=== PATIENT | female | born 1975 | race Caucasian/White ===

== ENCOUNTER 2023-12-06 14:25 | Emergency (ER) | payer OTHER, SELFPAY ==
[2023-12-06] VITALS (7 sets, daily range): BP systolic 97–136; BP diastolic 60–81; BMI 32.1
--- NOTE | 2023-12-06 14:57 | EDRN ---
this RN attempted to place a PIV and was unsuccessful, this RN called IV team
--- NOTE | 2023-12-06 15:34 | EDRN ---
IV team currently at the pts bedside attempting to place a PIV and draw labs
[2023-12-06 16:18] LABS: Hematocrit 34.3 % (37.0-47.0); Hemoglobin 12.1 g/dL (12.0-16.0); Mean Corp Hgb Conc. 35.3 g/dL (33.0-37.0); Mean Corpuscular Hgb 29.7 pg (27.0-31.0); Mean Corpuscular Volume 84.1 fL (81.0-99.0); Mean Platelet Volume 10.7 fL (7.4-10.4); Platelet Count 304 10^3/uL (130-400); Red Blood Cell Count 4.08 10^6/uL (4.20-5.40); Red Cell Dist. Width 12.6 % (11.5-14.5); White Blood Cell Count 5.5 10^3/uL (4.8-10.8)
[2023-12-06 16:35] LABS: % Basophils 0.9 % (0-2); % Eosinophils 2.9 % (0-6); % Immature Granulocytes 0.2 % (0-0.5); % Lymphocytes 40.4 % (20.5-51.1); % Monocytes 8.7 % (1.7-9.3); % Neutrophils 46.9 % (42.2-75.2); Absolute Basophils 0.1 10^3/uL (0-0.2); Absolute Eosinophils 0.2 10^3/uL (0-0.7); Absolute Lymphocytes 2.2 10^3/uL (1.2-3.4); Absolute Monocytes 0.5 10^3/uL (0.1-0.6); Absolute Neutrophils 2.6 10^3/uL (1.4-6.5); Nucleated Red Blood Cells % 0 %
[2023-12-06 17:33] LABS: ALT (SGPT) 13 U/L (0-35); AST (SGOT) 17 U/L (14-36); Albumin 3.6 g/dl (3.5-5.0); Alkaline Phosphatase 51 U/L (38-126); Blood Urea Nitrogen 14 mg/dl (7-17); Calcium 8.6 mg/dl (8.4-10.2); Carbon Dioxide 20 mmol/L (22-30); Chloride 111 mmol/L (98-107); Estimated Creatinine Clearance 98 ml/min; Glucose 83 mg/dl (70-99); Potassium 3.4 mmol/L (3.5-5.1); Sodium 143 mmol/L (135-145); Total Bilirubin 0.4 mg/dl (0.2-1.3); Total Protein 5.8 g/dl (6.3-8.2); eGFR > 60.00
[2023-12-06 17:45] LABS: Troponin I < 0.012 ng/ml
--- NOTE | 2023-12-06 19:14 | ED.GENMED ---
History of Present Illness
General
Chief Complaint: Seizure
Time Seen by Provider: 12/06/23 14:41
History of Present Illness
History of Present Illness:
48-year-old female presents emergency department after 3 episodes of shaking and glazed over eyes. She was awake, the lasted about 2 minutes. History of seizures.
Past History
Past History
ED Past Medical History: CVA, Hypothyroidism, Psychiatric and Other (PE, migraine headaches)
ED Past Surgical History: Other
Social History
Tobacco: Smoker
Alcohol: None
Drug: Former user and IVDA (Cocaine)
Family History
Family History: Other
Phy Exam
Physical Exam
Physical Exam:
Physical Exam
General: no apparent distress, not acutely ill
Neck: supple. no meningeal signs. normal posterior pharynx
Heart: s1/s2 regular rate and rhythm, no murmur. equal radial
pulses.
HEENT: Pupils equal round reactive to light, EOMI
Lungs: no acute respiratory distress. clear bilaterally
Abdomen: normal bowel sounds. not tender. no CVAT
Neuro: alert and oriented. no focal neurological deficits cranial nerves II through XII intact
Skin: no rash
Psychiatric: well kept. interactive and cooperative
Extremities: no edema. no calf tenderness. negative homans. good distal pulses
Course
Orders/Labs/Results
Orders:
Orders
12/06/23 14:55
CT Head W/o Iv Contrast Urgent
Comment:
Reason For Exam: seizure
12/06/23 15:59
Complete Blood Count/With Diff Urgent
12/06/23 17:14
Comprehensive Metabolic Panel Urgent
Topiramate (Topamax) [S] Urgent
Troponin I Urgent
Abnormal Lab Results
12/06/23 12/06/23
15:59 17:14
RBC 4.08 L 10^6/uL
(4.20-5.40)
Hct 34.3 L %
(37.0-47.0)
MPV 10.7 H fL
(7.4-10.4)
Potassium 3.4 L mmol/L
(3.5-5.1)
Chloride 111 H mmol/L
(98-107)
Carbon Dioxide 20 L mmol/L
(22-30)
Total Protein 5.8 L g/dl
(6.3-8.2)
12/06/23 15:59
12/06/23 17:14
Vital Signs
Initial and Last Documented VS:
Initial Vital Signs
Temp Pulse Resp BP Pulse Ox
98.6 F 59 16 97/61 98
12/06/23 14:32 12/06/23 14:32 12/06/23 14:32 12/06/23 14:32 12/06/23 14:32
Last Documented Vital Signs
Temp Pulse Resp BP Pulse Ox
98.6 F 59 18 102/66 94
12/06/23 14:32 12/06/23 18:30 12/06/23 18:30 12/06/23 18:00 12/06/23 18:30
MDM/Problems Addressed
Differential Diagnosis Includes:
Seizure, syncope
MDM/Problems Addressed:
48-year-old female with seizure. Resolved. Stable for discharge after observation. In ED. Negative head CT, normal lab.
*Radiology
Radiology exam reviewed: radiology read reviewed (CT head no acute findings)
*Pulse Oximetry
Patient hypoxic: no
*Marionette Performer Interpretation
Rate: normal
Interpretation: normal
Heart Rate: 75
Rhythm: sinus
*Critical Care Note
Total Time (30-74mins, 75-104mins- exclusive of procedures): Not Applicable
Patient Management
Social determinants of health affecting care: Living situation
Escalation/DeEscalation of care consider admission/obs:
Admit not indicated
ED Attending Note
-
Portions of this chart may have been created with voice recognition software.� Occasional wrong word or��sound alike� substitutions may have occurred due to the inherent limitations of voice recognition software.
Discharge Plan
Departure
Patient Disposition: Home (Routine Discharge)
Date of Disposition: 12/06/23
Time of Disposition: 19:12
Patient with high blood pressure during this ER visit?: No
Condition: Good
Discharge Problem:
Seizure
Instructions: Seizures, Adult (DC)
Prescriptions:
No Action
olanzapine 5 MG tablet
5 mg PO DAILY
gabapentin 800 MG tablet
800 mg PO TID
topiramate 100 MG tablet
100 mg PO HS
bupropion HCl [Wellbutrin SR] 200 MG tablet sustained-release 12 hr
200 mg PO DAILY
clonidine HCl 0.1 MG tablet
0.1 mg PO HSPRN PRN (Reason: anxiety/sleep walking)
sumatriptan succinate 50 MG tablet
50 mg PO DAILYPRN PRN (Reason: migraine)
hydroxyzine pamoate [Vistaril] 50 MG capsule
50 mg PO TIDPRN PRN (Reason: anxiety)
baclofen 10 MG tablet
10 mg PO DAILYPRN PRN (Reason: muscle spasm)
levothyroxine 125 MCG tablet
125 mcg PO DAILY
hydrochlorothiazide 12.5 MG tablet
12.5 mg PO DAILY
Referrals:
Mauri Santiago MD [Active] - Call in 1-3 days for appt
UNKNOWN - PT DOES,NOT KNOW [Family Provider] -
Activity Restrictions/Additional Instructions:
Follow up with primary care and own neurologist in 1 week. Return for any concerns.
Interventions
Interventions:
*Risk Screen - Suicide Last Done: 12/06/23 14:32
*General Assessment Last Done: 12/06/23 14:32
*Neglect/Abuse Screening Last Done: 12/06/23 14:56
ED- Fall Risk Assessment Last Done: 12/06/23 14:56
*ED COVID-19 Vaccine History Last Done: 12/06/23 14:32
ED- Cardiac Assessment Last Done: 12/06/23 14:56
ED- Neurological Assessment Last Done: 12/06/23 14:56
ED- Pulmonary Assessment Last Done: 12/06/23 14:56
Discharge Date and Time
Print Language: SINHALA
[2023-12-08 14:08] LABS: Topiramate (Topamax) 2.1 ug/mL (5.0-20.0)
== END 2023-12-06 19:47 | disposition home or self-care (01) ==
LOC: EMR 14:25
PROVIDERS: EMERGENCY PHYSICIAN Emergency Medicine
DX: R56.9 Unspecified convulsions (principal); E03.9 Hypothyroidism, unspecified; F17.200 Nicotine dependence, unspecified, uncomplicated; Z86.73 Personal history of transient ischemic attack (TIA), and cerebral infarction without residual deficits
CPT/HCPCS: 99284; 70450; 80053; 80201; 84484; 85025

== ENCOUNTER → 2024-01-20 11:05 | Outpatient (REF) | payer OTHER, SELFPAY ==
--- NOTE | 2024-01-20 13:46 | EEG.RPT ---
Electroencephalogram Report
Recording
Date of EE01/20/24
Type of EEG: Routine
Length of EEG recordin minutes
Done with Video Recording: Yes
Patient Status: Outpatient
Recording Conditions: Awake, Drowsy and Asleep
Hyperventilation Performed: Yes
Photic Stimulation Performed: Yes
Report
LESS THAN 1 HOUR EEG INTERPRETATION:
Unremarkable EEG for age
CLINICAL CORRELATION:
A normal EEG does not rule out a diagnosis of epilepsy. If clinical suspicion for seizure persists, a prolonged recording may be warranted.
Clinical correlation is advised.
METHODS:
A 21 channel digitized electroencephalogram (EEG) was performed using the 10/20 international system of electrode placement and one-lead of ECG recorded. The [employer] quantitative EEG system was utilized.
ELECTROENCEPHALOGRAPHER IMPRESSION(S):
Quality of study
Good
Background
There was an unremarkable anterior-posterior voltage gradient of alpha frequency.
With eye opening the background activity changed to a low voltage mixture of frequencies.
There were no significant asymmetries of background activity noted.
Hyperventilation
Failed to produce activation the record
Sleep
Drowsiness present
Stage 1 present
Stage 2 present
Photic Stimulation
No activation
ECG
Normal sinus rhythm
== END ==
LOC: EEG 11:05
PROVIDERS: ATTENDING PHYSICIAN Psychiatry & Neurology Neurology; FAMILY PHYSICIAN Nurse Practitioner Acute Care
DX: G93.40 Encephalopathy, unspecified (principal)
CPT/HCPCS: 95813

== ENCOUNTER → 2024-02-24 13:23 | Outpatient (REF) | payer OTHER, SELFPAY | LOC: RCS 13:23 | PROVIDERS: ATTENDING PHYSICIAN Internal Medicine Cardiovascular Disease; FAMILY PHYSICIAN Nurse Practitioner Acute Care | DX: Z00.8 Encounter for other general examination (principal) | CPT/HCPCS: 93306 ==

== ENCOUNTER → 2024-03-29 12:00 | Outpatient (REF) | payer OTHER, SELFPAY | LOC: DHSLP 12:00 | PROVIDERS: ATTENDING PHYSICIAN Internal Medicine; FAMILY PHYSICIAN Nurse Practitioner Acute Care | DX: G47.19 Other hypersomnia (principal); R06.83 Snoring | CPT/HCPCS: 95800 ==

== ENCOUNTER 2024-08-04 20:52 | Emergency (ER) | payer OTHER, SELFPAY ==
[2024-08-04 20:54] VITALS: BP 150/90
--- NOTE | 2024-08-04 22:46 | ED.GENMED ---
History of Present Illness
General
Chief Complaint: Crisis Evaluation
Source: patient
Exam Limitations: none
Time Seen by Provider: 08/04/24 21:24
Nursing documentation reviewed up to this point in time: agreed with
History of Present Illness
History of Present Illness:
Patient with history of depression and alcohol abuse, presents to ED requesting assistance with her alcohol use, along with depression and suicidal thoughts, as she is currently experiencing difficulty with her family. Patient otherwise has no
physical complaints. Denies recent illness. Denies inability to eat or sleep. Denies recent change in medications or diet.
Past History
Past History
ED Past Medical History: CVA, Hypothyroidism, Psychiatric and Other (PE, migraine headaches)
ED Past Surgical History: Other
Social History
Tobacco: Smoker
Alcohol: None
Drug: Former user and IVDA (Cocaine)
Family History
Family History: Other
Review of Systems
Review of Systems
Allergies reviewed?: Yes
Constitutional: Reports no symptoms
Respiratory: Reports no symptoms
Cardiac: Reports no symptoms
ABD/GI: Reports no symptoms
Musculoskeletal: Reports no symptoms
Skin: Reports no symptoms
Neurological: Reports no symptoms
Psychiatric: Reports depression and suicidal
Phy Exam
Physical Exam
Physical Exam:
Physical Exam
General: no apparent distress, not acutely ill. afebrile
Head: nc/at. eomi
Neck: supple. normal range of motion
Neuro: alert and oriented x 3. no focal neurological deficits. normal speech
Skin: no rash
Psychiatric: well kept. interactive and cooperative
Extremities: no edema. no calf tenderness.
Course
Orders/Labs/Results
Orders:
Orders
08/04/24 21:02
Crisis Consult Urgent
Reason for Consult: si
08/04/24 22:47
Test Result ONCE
08/04/24 23:19
Acetaminophen Urgent
Alcohol Urgent
Complete Blood Count/No Diff Urgent
Comprehensive Metabolic Panel Urgent
HCG, Serum Qualitative Screen Urgent
Salicylate Urgent
Urine Drug Abuse Screen Urgent
Date Specimen was Collected: 08/04/24
Time Specimen was Collected: 23:12
08/04/24 23:59
Acetaminophen [Tylenol] 650 mg .ROUTE .STK-MED ONE
08/05/24 00:01
Acetaminophen [Tylenol] 650 mg PO NOW STA
08/05/24 00:12
one to one [ED Special Safety Observation] ONCE
Observation level: One to Two
Abnormal Lab Results
08/04/24
23:19
RBC 4.17 L 10^6/uL
(4.20-5.40)
Hct 36.8 L %
(37.0-47.0)
MPV 10.6 H fL
(7.4-10.4)
Sodium 147 H mmol/L
(135-145)
Chloride 117 H mmol/L
(98-107)
Carbon Dioxide 21 L mmol/L
(22-30)
Salicylates < 1.0 L mg/dl
(2.0-20.0)
Acetaminophen < 10 L ug/ml
(10-30)
08/04/24 23:19
08/04/24 23:19
Vital Signs
Initial and Last Documented VS:
Initial Vital Signs
Temp Pulse Resp BP Pulse Ox
98.0 F 63 20 150/90 98
08/04/24 20:54 08/04/24 20:54 08/04/24 20:54 08/04/24 20:54 08/04/24 20:54
Last Documented Vital Signs
Temp Pulse Resp BP Pulse Ox
98.0 F 63 20 150/90 98
08/04/24 20:54 08/04/24 20:54 08/04/24 20:54 08/04/24 20:54 08/04/24 20:54
MDM/Problems Addressed
MDM/Problems Addressed:
Patient medically cleared. Patient will be transitioned to inpatient psychiatric facility for further evaluation and treatment.
ED Attending Note
-
Portions of this chart may have been created with voice recognition software.� Occasional wrong word or��sound alike� substitutions may have occurred due to the inherent limitations of voice recognition software.
Discharge Plan
Departure
Patient Disposition: Psych Facility
Date of Disposition: 08/04/24
Time of Disposition: 22:47
Patient Status:: 201
Discharge Problem:
Depression, Suicidal ideation
Prescriptions:
No Action
olanzapine 5 MG tablet
5 mg PO DAILY
gabapentin 800 MG tablet
800 mg PO TID
topiramate 100 MG tablet
100 mg PO HS
bupropion HCl [Wellbutrin SR] 200 MG tablet sustained-release 12 hr
200 mg PO DAILY
clonidine HCl 0.1 MG tablet
0.1 mg PO HSPRN PRN (Reason: anxiety/sleep walking)
sumatriptan succinate 50 MG tablet
50 mg PO DAILYPRN PRN (Reason: migraine)
hydroxyzine pamoate [Vistaril] 50 MG capsule
50 mg PO TIDPRN PRN (Reason: anxiety)
baclofen 10 MG tablet
10 mg PO DAILYPRN PRN (Reason: muscle spasm)
levothyroxine 125 MCG tablet
125 mcg PO DAILY
hydrochlorothiazide 12.5 MG tablet
12.5 mg PO DAILY
Referrals:
UNKNOWN - PT NOT,INTERVIEWE [Family Provider] -
Interventions
Interventions:
*Risk Screen - Suicide Last Done: 08/04/24 20:54
*General Assessment Last Done: 08/04/24 20:54
*Neglect/Abuse Screening Last Done: 08/04/24 20:54
*ED- Fall Risk Assessment Last Done: 08/04/24 22:07
*ED COVID-19 Vaccine History Last Done: 08/04/24 22:51
ED-Psychological Assessment Last Done: 08/05/24 00:20
Discharge Date and Time
Print Language: SAMI
[2024-08-04 23:29] LABS: Hematocrit 36.8 % (37.0-47.0); Hemoglobin 12.6 g/dL (12.0-16.0); Mean Corp Hgb Conc. 34.2 g/dL (33.0-37.0); Mean Corpuscular Hgb 30.2 pg (27.0-31.0); Mean Corpuscular Volume 88.2 fL (81.0-99.0); Mean Platelet Volume 10.6 fL (7.4-10.4); Platelet Count 276 10^3/uL (130-400); Red Blood Cell Count 4.17 10^6/uL (4.20-5.40); Red Cell Dist. Width 12.7 % (11.5-14.5); White Blood Cell Count 5.9 10^3/uL (4.8-10.8)
[2024-08-04 23:36] LABS: HCG, Serum Qualitative Screen Negative
[2024-08-04 23:42] LABS: ALT (SGPT) 14 U/L (0-35); AST (SGOT) 15 U/L (14-36); Acetaminophen < 10 ug/ml (10-30); Albumin 4.1 g/dl (3.5-5.0); Alcohol 89 mg/dl; Alkaline Phosphatase 53 U/L (38-126); Blood Urea Nitrogen 16 mg/dl (7-17); Calcium 9.3 mg/dl (8.4-10.2); Carbon Dioxide 21 mmol/L (22-30); Chloride 117 mmol/L (98-107); Glucose 99 mg/dl (70-99); Potassium 3.6 mmol/L (3.5-5.1); Salicylate < 1.0 mg/dl (2.0-20.0); Sodium 147 mmol/L (135-145); Total Bilirubin 0.2 mg/dl (0.2-1.3); Total Protein 6.7 g/dl (6.3-8.2); eGFR > 60.00
[2024-08-04 23:43] LABS: Amphetamines Negative (Negative); Barbiturates Negative (Negative); Benzodiazepines Negative (Negative); Buprenorphine Negative (Negative); Cocaine Negative (Negative); Marijuana Negative (Negative); Methadone Negative (Negative); Methamphetamines Negative (Negative); Opiates Negative (Negative); Phencyclidine Negative (Negative); Tricyclic Antidepressants Negative (Negative)
[2024-08-05] MEDS: TYLENOL 650 MG PO (00:01)
--- NOTE | 2024-08-05 06:17 | ED.CRISIS ---
ED Crisis Note
ED Crisis Note
Subjective:
49-year-old female here complaining of depression and suicidality. History of alcohol use.
Objective:
Sleeping comfortably in bed not in acute distress. Vital signs stable.
Assessment/Plan:
49-year-old female here for depression and suicidality. She was seen by our crisis team and plan is for voluntary inpatient psychiatric treatment. She has been accepted at [facility] and is pending transport. Continue to monitor.
== END 2024-08-05 08:03 ==
LOC: EMR 20:52
PROVIDERS: EMERGENCY PHYSICIAN Emergency Medicine
DX: R45.851 Suicidal ideations (principal); F32.A Depression, unspecified; Z63.9 Problem related to primary support group, unspecified; E03.9 Hypothyroidism, unspecified; G43.909 Migraine, unspecified, not intractable, without status migrainosus; F10.10 Alcohol abuse, uncomplicated; R56.9 Unspecified convulsions; N18.9 Chronic kidney disease, unspecified; D64.9 Anemia, unspecified; F17.200 Nicotine dependence, unspecified, uncomplicated; F14.11 Cocaine abuse, in remission; Z86.73 Personal history of transient ischemic attack (TIA), and cerebral infarction without residual deficits; Z86.711 Personal history of pulmonary embolism
CPT/HCPCS: 99285; 80053; 80143; 80179; 80306; 82077; 84703; 85027